=== PATIENT | male | born 1990 | race Caucasian/White ===

== ENCOUNTER 2016-12-25 14:33 | Emergency (ER) | payer OTHER ==
[~2016-12-25] VITALS: Ht 177.8 cm; Wt 97.2 kg
[2016-12-25] MEDS ORDERED: OLAN10TA3 PO (14:37)
[2016-12-25 15:13] VITALS: BP 116/69
== END 2016-12-25 15:17 | disposition left against medical advice (07) ==
LOC: EEVIPCON 14:33 → EMS 14:33
DX: F32.9 Major depressive disorder, single episode, unspecified (principal); F17.210 Nicotine dependence, cigarettes, uncomplicated
CPT/HCPCS: 99284

== ENCOUNTER 2018-12-30 04:41 | Inpatient (IN) | payer MEDICAID, OTHER ==
[~2018-12-30] VITALS: Ht 180.3 cm; Wt 71.0 kg
[~2018-12-30 04:41] MED LIST: LITH300C3 PO; OLAN10TA20 PO
[2018-12-30 05:06] LABS: BASOPHILS % (AUTO) 0.5 % (0.0-2.0); EOSINOPHILS % (AUTO) 1.3 % (1.0-6.0); HEMATOCRIT 45.6 % (41-53); HEMOGLOBIN 15.8 g/dL (13.5-17.5); LYMPHOCYTES # (AUTO) 1.6 K/uL (1.0-4.8); LYMPHOCYTES % (AUTO) 20.3 % (22.0-44.0); MEAN CORPUSCULAR HEMOGLOBIN 31.4 pg (26.0-34.0); MEAN CORPUSCULAR HGB CONC 34.6 G/dL (31.0-37.0); MEAN CORPUSCULAR VOLUME 91 fL (80-100); MONOCYTES # (AUTO) 0.6 K/uL (0.1-1.0); MONOCYTES % (AUTO) 7.6 % (2.0-9.0); NEUTROPHILS # (AUTO) 5.6 K/uL (1.8-7.7); NEUTROPHILS % (AUTO) 70.3 % (40.0-70.0); PLATELET COUNT (AUTO) 233 K/uL (150-450); RED BLOOD CELL COUNT(AUTO) 5.02 MIL/uL (4.50-5.90); RED CELL DISTRIBUTION WIDTH 13.2 % (11.5-14.5)
[2018-12-30 05:09] LABS: ANION GAP 8 mmol/L (8-16); CALCIUM, TOTAL 9.6 mg/dL (8.8-10.5); CARBON DIOXIDE 30 mmol/L (22-29); CHLORIDE 100 mmol/L (98-107); CREATININE 0.97 mg/dL (0.60-1.30); GLOMERULAR FILTR. RATE CALC > 60 mL/min (>60); GLUCOSE,RANDOM 107 mg/dL (70-110); SODIUM SERUM 138 mmol/L (136-145); UREA NITROGEN, BLOOD 14 mg/dL (7-18)
[2018-12-30 05:15] LABS: ALANINE AMINOTRANSFERASE 38 U/L (12-78); ALKALINE PHOSPHATASE 82 U/L (46-116); ASPARTATE AMINOTRANSFERASE 38 U/L (15-37); BILIRUBIN,TOTAL 0.6 mg/dL (0.1-1.0)
[2018-12-30 05:16] LABS: AMPHET/METH SCREEN,URINE NEGATIVE (NEGATIVE); BARBITURATE SCREEN, URINE NEGATIVE (NEGATIVE); BENZODIAZEPINES SCREEN,URINE NEGATIVE (NEGATIVE); CANNABINOID SCREEN,URINE NEGATIVE (NEGATIVE); COCAINE SCREEN,URINE NEGATIVE (NEGATIVE); METHADONE SCREEN, URINE NEGATIVE (NEGATIVE); OPIATE SCREEN,URINE NEGATIVE (NEGATIVE); PHENCYCLIDINE SCREEN,URINE NEGATIVE (NEGATIVE)
[2018-12-30 10:13] VITALS: BP 125/71
[2018-12-30] MEDS: LITHIUM CARBONATE 300 MG CAPSULE PO SCH ×2 (11:00→16:26)
[2018-12-30] MEDS ORDERED: MAG HYDROX/AL HYDROX/SIMETH ES 30 ML SUSPENSION UDCUP PO PRN (12:45)
[2018-12-30] MEDS ORDERED: ACETAMINOPHEN 325 MG TABLET PO PRN (12:45)
[2018-12-30] MEDS ORDERED: IBUPROFEN 400 MG TABLET PO PRN (12:45)
[2018-12-30] MEDS ORDERED: LOPERAMIDE HCL 2 MG CAPSULE PO PRN (12:45)
[2018-12-30] MEDS ORDERED: PETROLATUM,WHITE 28 GM JELLY TP PRN (12:45)
[2018-12-30] MEDS ORDERED: NICOTINE 14 MG/24 HOUR PATCH TD PRN (12:45)
[2018-12-30] MEDS ORDERED: CloNIDine HCL 0.1 MG TABLET PO PRN (12:45)
[2018-12-30] MEDS ORDERED: DOCUSATE SODIUM 100 MG CAPSULE PO PRN (12:45)
[2018-12-30] MEDS ORDERED: ALBUTEROL SULFATE HFA 90 MCG/PUFF 8 GM INHALER IH PRN (12:45)
[2018-12-30] MEDS ORDERED: MAGNESIUM HYDROXIDE SUSPENSION 30 ML UDCUP PO PRN (12:45)
[2018-12-30] MEDS ORDERED: ONDANSETRON HCL 4 MG TABLET PO PRN (12:45)
[2018-12-30] MEDS ORDERED: GuaiFENesin/D-METHORPHAN [SUGAR-FREE] 200-20MG/10 ML SYRUP UDCUP PO PRN (12:45)
[2018-12-30 17:09] VITALS: BP 126/92
[2018-12-30] MEDS: OLANZapine 10 MG TABLET PO SCH (21:00)
[2018-12-31] MEDS: LITHIUM CARBONATE 300 MG CAPSULE PO SCH ×2 (09:00→16:36)
[2018-12-31 10:50] VITALS: BP 124/71
[2018-12-31 17:20] VITALS: BP 119/77
[2018-12-31] MEDS: OLANZapine 10 MG TABLET PO SCH (20:27)
[2019-01-01 08:15] VITALS: BP 136/74
[2019-01-01] MEDS: LITHIUM CARBONATE 300 MG CAPSULE PO SCH ×2 (09:00→16:04)
[2019-01-01] MEDS: OLANZapine 10 MG TABLET PO SCH (20:24)
[2019-01-01] MEDS: LORazepam 2 MG TABLET PO PRN (22:44)
[2019-01-02] MEDS: LITHIUM CARBONATE 300 MG CAPSULE PO SCH ×2 (09:00→16:43)
[2019-01-02] MEDS: OLANZapine 10 MG TABLET PO SCH ×2 (12:15→20:18)
[2019-01-02 16:44] VITALS: BP 106/67
[2019-01-03 08:47] VITALS: BP 139/73
[2019-01-03] MEDS: OLANZapine 10 MG TABLET PO SCH ×2 (09:00→20:37)
[2019-01-03] MEDS: LITHIUM CARBONATE 300 MG CAPSULE PO SCH ×2 (09:00→16:26)
[2019-01-03 16:26] VITALS: BP 117/60
[2019-01-04 00:21] VITALS: BP 113/75
[2019-01-04 08:14] VITALS: BP 103/77
[2019-01-04] MEDS: OLANZapine 10 MG TABLET PO SCH ×2 (11:11→20:44)
[2019-01-04] MEDS: LITHIUM CARBONATE 300 MG CAPSULE PO SCH ×2 (11:11→16:18)
[2019-01-04] MEDS: LORazepam 2 MG TABLET PO PRN (11:12)
[2019-01-04 17:01] VITALS: BP 115/74
[2019-01-05 08:19] VITALS: BP 130/73
[2019-01-05] MEDS: OLANZapine 10 MG TABLET PO SCH ×2 (09:00→21:00)
[2019-01-05] MEDS: LITHIUM CARBONATE 300 MG CAPSULE PO SCH ×2 (09:03→16:24)
[2019-01-05 16:21] VITALS: BP 118/76
[2019-01-06] MEDS: LITHIUM CARBONATE 300 MG CAPSULE PO SCH ×3 (08:20→16:38)
[2019-01-06] MEDS: OLANZapine 10 MG TABLET PO SCH ×3 (08:20→20:11)
[2019-01-06 08:21] VITALS: BP_SYST 151; BP_DIAS 71; BP_DIAS 84
[2019-01-06] MEDS: LORazepam 2 MG TABLET PO PRN (11:00)
[2019-01-06 16:05] VITALS: BP 141/77
[2019-01-06] MEDS: HALOPERIDOL 5 MG TABLET PO PRN (16:38)
[2019-01-07 08:25] VITALS: BP 118/73
[2019-01-07] MEDS: OLANZapine 10 MG TABLET PO SCH ×2 (08:41→20:55)
[2019-01-07] MEDS: LITHIUM CARBONATE 300 MG CAPSULE PO SCH ×2 (08:41→16:14)
[2019-01-07] MEDS: LORazepam 2 MG TABLET PO PRN (09:19)
[2019-01-07] MEDS: HALOPERIDOL 5 MG TABLET PO PRN (16:14)
[2019-01-07 16:16] VITALS: BP 121/81
[2019-01-08] MEDS: LITHIUM CARBONATE 300 MG CAPSULE PO SCH ×2 (08:01→16:28)
[2019-01-08] MEDS: OLANZapine 10 MG TABLET PO SCH ×2 (08:01→20:19)
[2019-01-08 08:08] VITALS: BP 114/62
[2019-01-08 16:00] VITALS: BP 131/88
[2019-01-09] MEDS: OLANZapine 10 MG TABLET PO SCH ×2 (08:30→21:29)
[2019-01-09] MEDS: LITHIUM CARBONATE 300 MG CAPSULE PO SCH (08:30)
[2019-01-09 10:05] VITALS: BP 114/64
[2019-01-09 16:30] VITALS: BP 114/60
[2019-01-09] MEDS: LITHIUM CARBONATE 600 MG CAPSULE PO SCH ×2 (17:00→18:05)
[2019-01-09] MEDS: ZOLPIDEM TARTRATE 10 MG TABLET PO PRN (22:48)
[2019-01-09] MEDS: LORazepam 2 MG TABLET PO PRN (22:48)
[2019-01-10] MEDS: OLANZapine 10 MG TABLET PO SCH ×2 (07:59→21:00)
[2019-01-10] MEDS: LITHIUM CARBONATE 600 MG CAPSULE PO SCH ×2 (07:59→16:19)
[2019-01-10 08:47] VITALS: BP 110/70
[2019-01-10 16:09] VITALS: BP 117/68
[2019-01-11] MEDS: LORazepam 2 MG TABLET PO PRN (01:47)
[2019-01-11] MEDS: ZOLPIDEM TARTRATE 10 MG TABLET PO PRN (01:47)
[2019-01-11] MEDS: OLANZapine 10 MG TABLET PO SCH (08:23)
[2019-01-11] MEDS: LITHIUM CARBONATE 600 MG CAPSULE PO SCH (08:23)
[2019-01-11 08:57] VITALS: BP 113/63
[2019-01-11] MEDS ORDERED: OLAN10TA3 PO (12:21)
[2019-01-11] MEDS ORDERED: LITH600 PO (12:22)
== END 2019-01-11 13:20 | disposition home or self-care (01) | DRG 750 ==
LOC: EMS 04:41 → 3EC 08:54
DX: F25.0 Schizoaffective disorder, bipolar type (principal); R45.851 Suicidal ideations; Z91.19 Patient's noncompliance with other medical treatment and regimen; F17.200 Nicotine dependence, unspecified, uncomplicated; K59.00 Constipation, unspecified; E80.6 Other disorders of bilirubin metabolism
CPT/HCPCS: G0480